=== PATIENT | female | born 1965 | race African-American/Black ===

== ENCOUNTER 2016-09-23 09:05 | Emergency (ER) | payer SELFPAY ==
[~2016-09-23] VITALS: Ht 157.5 cm; Wt 165.0 kg
[2016-09-23] MEDS ORDERED: ACETAMINOPHEN WITH CODEINE 300/30MG TABLET PO ONE (11:00)
[2016-09-23 11:12] VITALS: BP 149/91
[2016-09-23 11:19] LABS: CLARITY URINE CLEAR (CLEAR); COLOR URINE YELLOW (YELLOW); GLUCOSE URINE NEGATIVE (NEGATIVE); KETONES URINE NEGATIVE (NEGATIVE); LEUKOCYTE ESTERASE URINE TRACE (NEGATIVE); NITRITE URINE NEGATIVE (NEGATIVE); OCCULT BLOOD URINE NEGATIVE (NEGATIVE); PROTEIN URINE NEGATIVE (NEGATIVE); SPECIFIC GRAVITY URINE 1.016 (1.005-1.030); UROBILINOGEN URINE 0.2 E.U./dL (0.2-1.0)
[2016-09-23 11:36] LABS: SQUAMOUS EPITHELIAL CELL URINE 2+ /lpf (RARE/1+)
[2016-09-23 11:37] LABS: BACTERIA URINE TRACE; RBC URINE 0-2 /hpf (0-2); WBC URINE 0-2 /hpf (0-2); YEAST URINE FEW
== END 2016-09-23 15:00 | disposition home or self-care (01) ==
LOC: EDBD 09:26 → ER 09:26
DX: S16.1XXA Strain of muscle, fascia and tendon at neck level, initial encounter (principal); S50.811A Abrasion of right forearm, initial encounter; S90.811A Abrasion, right foot, initial encounter; R07.89 Other chest pain; M54.5 Low back pain; M54.2 Cervicalgia; I10 Essential (primary) hypertension; Z88.2 Allergy status to sulfonamides; V89.2XXA Person injured in unspecified motor-vehicle accident, traffic, initial encounter; W22.10XA Striking against or struck by unspecified automobile airbag, initial encounter; Y93.89 Activity, other specified; Y92.89 Other specified places as the place of occurrence of the external cause; Y99.8 Other external cause status
CPT/HCPCS: 71111; 71120; 72050; 73000; 73630; 81001; 81025; 99285